=== PATIENT | male | born 1955 | race Caucasian/White ===

== ENCOUNTER → 2017-05-08 10:22 | Outpatient (CLI) | payer OTHER ==
[2014-08-18 10:00] VITALS: BMI 37.6
[~2017-05-08 10:22] MED LIST: BAYER CHEWABLE81 MG PO; PLAVIX75 MG PO; PRAVACHOL40 MG PO
== END | disposition home or self-care (01) ==
LOC: D.US 10:22
DX: I70.219 Atherosclerosis of native arteries of extremities with intermittent claudication, unspecified extremity (principal)

== ENCOUNTER → 2017-06-01 19:36 | Outpatient (CLI) | payer OTHER ==
[2014-08-18 10:00] VITALS: BMI 37.6
== END | disposition home or self-care (01) ==
LOC: D.LABREF 19:36
DX: R53.83 Other fatigue (principal)

== ENCOUNTER → 2018-07-07 15:08 | Outpatient (CLI) | payer OTHER ==
[2014-08-18 10:00] VITALS: BMI 37.6
== END | disposition home or self-care (01) ==
LOC: D.CT 15:00
DX: R10.31 Right lower quadrant pain (principal)

== ENCOUNTER 2018-12-03 06:20 | Day surgery (SDC) | payer OTHER ==
[2018-12-02 16:39] LABS: HEMATOCRIT 46.1 % (42.0-54.0); HEMOGLOBIN 15.8 g/dL (13.5-17.5); MCH 33.8 pg (26.0-34.0); MCHC 34.3 g/dL (31.0-37.0); MCV 98.7 fL (80.0-100.0); MEAN PLATELET VOLUME 9.9 fL (7.4-10.4); RBC 4.67 10x6/uL (4.20-6.10); RDW 12.3 % (11.5-14.5); WBC 14.5 10x3/uL (4.8-10.8)
[~2018-12-03] VITALS: Ht 177.8 cm; Wt 113.6 kg
[~2018-12-03 06:20] MED LIST changes: +FLOMAX0.4 MG PO; +PRINIVIL20 MG PO
[2018-12-03 07:32] VITALS: BP 102/52; Ht 177.8 cm; Wt 113.6 kg
[2018-12-03] MEDS ORDERED: HYDROCODON-ACE1 EAC7 PO (11:22)
--- NOTE | 2018-12-03 13:58 | OP ---
PATIENT NAME: HANSEL RAJAN MEDICAL RECORD: [id number] :59 LOCATION:[facility] ADMISSION DATE: SURGEON: CLAUDY HOGUE DO DATE OF OPERATION: 12/03/2018 PROCEDURE PERFORMED: Right endoscopic carpal tunnel release. PREOPERATIVE DIAGNOSIS: Severe right carpal tunnel syndrome. POSTOPERATIVE DIAGNOSIS: Severe right carpal tunnel syndrome. INDICATIONS: Mr. Rajan is a 63-year-old male who presented to my office with a nerve conduction study, which showed a distal motor latency on bilateral carpal tunnels of above 12, normal is below 4.3. The patient said he has been having this for quite some time and has been waking him up at night. He is tired of dealing with the pain and the numbness, not being able to use hand. I then informed him of the risks and benefits of procedure including damage to nerves and vessels, need for further surgery, infection, bleeding. I also told him that due to the severity of his carpal tunnel, he may not get sensation back in the median nerve distribution of the hand due the fact it was compressed so badly that I could help him with the pain and he is okay with that and signed the consent. SURGEON: Claudy Hogue DO DESCRIPTION OF PROCEDURE: The patient was taken to the operative suite, laid in supine position. The right upper extremity was prepped and draped in sterile fashion. The patient was given 2 grams Ancef after a test dose due to his PENICILLIN ALLERGY. The timeout was performed, everyone was in agreement with the correct side, site, patient and procedure. The right upper extremity was then exsanguinated with an Esmarch and the tourniquet was inflated to 250 mmHg, was up for 7 minutes. The hand was then marked just proximal to the wrist crease over the palmaris longus tendon and 15 blade scalpel was used to incise the skin and then 2 Ragnells were used to dissect bluntly down to the carpal tunnel. The fascia of the forearm was released from distal to proximal at that point, through the incision on top of the median nerve visualizing this through loupe magnification, then entered the dilators into the carpal tunnel itself and the sheath entered in. A probe and rasp were used to clean off the transverse carpal ligament, ensuring that there was nothing in or through the ligament. The blade was then brought in and then raised up and transected the transverse carpal ligament. Then, the sheath, blade, and camera removed and any fibers remaining through transverse carpal ligament were spread with scissors under direct loupe magnification. The tourniquet was then let down at 7 minutes. The site was injected with 0.5% Marcaine with epinephrine 10 mL around the site. The incision was closed with 5-0 Monocryl in inverted interrupted fashion. Steri-Strips were placed in the wound, Adaptic, 4 x 4's, Kerlix, and Coban was lightly wrapped on the patient's hand. The patient was awakened and taken to recovery in stable condition. BLOOD LOSS: Minimal. COMPLICATIONS: None. TRANSINT:[id number] Voice Confirmation ID: [id number] DOCUMENT ID: [id number] OPERATIVE REPORT [id number] HANSEL RAJAN,CLAUDY Urbano DO at 1358 CC: [id number] DICTATION DATE: 12/03/18 1126 RN FIELD CASE MANAGER: 12/03/18 1323 [facility] [address] [place] [address]
== END 2018-12-03 12:00 | disposition home or self-care (01) ==
LOC: D.OPS 06:20 → D.PAN 10:30 → D.OPS 10:30
PROVIDERS: Anesthesiology
DX: G56.01 Carpal tunnel syndrome, right upper limb (principal); Z01.812 Encounter for preprocedural laboratory examination